=== PATIENT | female | born 1980 | race Caucasian/White ===

== ENCOUNTER 2018-12-25 17:39 | Emergency (ER) | payer MEDICARE, MEDICAID, SELFPAY ==
[2018-12-25 17:53] VITALS: BP 136/88; PULSE 110; RESP 18; TEMP 37.5; O2SAT 97
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
[2018-12-25] MEDS: LORazepam 2 MG/ML VIAL IM (19:01)
[2018-12-25 19:09] LABS: Abs Immature Grans 0.01 k/cumm (0.0-0.09); Absolute Basophil Count 0.03 k/cumm (0.0-0.2); Absolute Eosinophil Count 0.15 k/cumm (0.0-0.7); Absolute Lymphocyte Count 4.06 k/cumm (1.2-3.4); Absolute Monocyte Count 0.72 k/cumm (0.11-0.7); Absolute Neutrophil Count 4.29 k/cumm (1.2-6.7); Basophils % 0.3; Eosinophils % 1.6; HCT 40.3 % (36.0-46.0); HGB 13.5 g/dL (12.0-15.5); Immature Grans % 0.1; Lymphocytes % 43.8; Mean Corp. HGB Concentration 33.5 g/dL (32.0-36.0); Mean Corpuscular Hemoglobin 33.7 pg (27.0-33.0); Mean Corpuscular Volume 100.5 fL (80-95); Mean Platelet Volume 8.4 fL (8.0-11.0); Monocytes % 7.8; Neutrophils % 46.4; Platelet Count 474 x1000/uL (130-400); RBC 4.01 m/cumm (4.00-5.20); RBC Distribution Width 13.4 % (11.7-14.6); White Blood Cell Count 9.26 k/cumm (4.4-10.8)
[2018-12-25 19:13] LABS: *AMPHETAMINES SCREEN URINE Negative (Negative); *BARBITURATES SCREEN URINE Negative (Negative); *BENZODIAZEPINES SCREEN URINE Negative (Negative); Cannabinoids THC POSITIVE (Negative); Cocaine Screen,Urine Negative (Negative); METHADONE URINE SCREEN POSITIVE (Negative); OPIATES URINE SCREEN Negative (Negative)
[2018-12-25 19:15] LABS: Tricyclic Antidepressants Negative (Negative)
[2018-12-25 19:21] LABS: Anion Gap 14.4 mmol/L (3-11); BUN 9 mg/dL (7-18); CO2 21.6 mmol/L (21.0-32.0); CREATININE 0.94 mg/dL (0.55-1.02); Calcium 9.7 mg/dL (8.5-10.1); Chloride 107 mmol/L (98-107); Glucose 94 mg/dL (70-100); Sodium 143 mmol/L (136-145)
[2018-12-25 22:04] LABS: HIV 1/2 Ab Rapid Negative (Negative)
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
[2018-12-26 05:58] VITALS: BP 113/74; PULSE 100; RESP 17; TEMP 37; O2SAT 99
[2018-12-26 06:10] VITALS: BP 113/74; PULSE 100; RESP 17; O2SAT 99
[2018-12-28 11:50] LABS: Hepatitis B Surface Ag Negative (NEGAT)
[2018-12-28 12:04] LABS: HIV-1/2 Ag & Ab Screen Negative (NEGAT); Hepatitis C Ab w Rflx HCV PCR Negative (NEGAT)
== END 2018-12-26 06:01 | disposition home or self-care (01) ==
PROVIDERS: Physician Assistant; Emergency Provider Student in an Organized Health Care Education/Training Program
DX: F10.929 Alcohol use, unspecified with intoxication, unspecified (principal); R45.6 Violent behavior; Y90.8 Blood alcohol level of 240 mg/100 ml or more
CPT/HCPCS: 36415; 80048; 80307; 81025; 86803; 87340; 87389; 96372; 99285; 80320; 85025; 99284; J2060

== ENCOUNTER 2020-10-17 04:03 | Outpatient (CLI) | payer MEDICARE, MEDICAID, SELFPAY ==
--- NOTE | 2020-10-17 09:00 | RT.EKG_ITS ---
APPROVED REPORT Exam: Resting ECG Patient Location: O HR:73 bpm ECG Measurements Heart Rate 73 AXIS IN 146 P 49 QRSd 94 QRS 13 QT 431 T -9 QTc 476 Conclusion Sinus rhythm...normal P axis, V-rate 60- 99
== END 2020-10-17 04:04 | disposition home or self-care (01) ==
LOC: RT 04:04
PROVIDERS: Visit Provider Family Medicine
DX: Z79.899 Other long term (current) drug therapy (principal); Z13.6 Encounter for screening for cardiovascular disorders
CPT/HCPCS: 93005; 93010